=== PATIENT | female | born 1995 | race Caucasian/White ===

== ENCOUNTER 2020-12-17 19:27 | Emergency (ER) | payer OTHER ==
[2020-12-17] MEDS ORDERED: predniSONE 10 MG Tab PO ONE (22:56)
[2020-12-17] MEDS ORDERED: diphenhydrAMINE 50 MG/ML SDV IM ONE (22:56)
--- NOTE | 2020-12-17 23:02 | EDM.PDOC ---
ED HPI GENERAL MEDICAL PROBLEM - General Chief Complaint: Allergic Reaction Stated Complaint: ALLERGIC REACTION Time Seen by Provider: 12/17/20 22:51 - History of Present Illness INITIAL COMMENTS - FREE TEXT/NARRATIVE: HISTORY AND PHYSICAL: History of present illness: Is a 25-year-old female who presents ER today secondary to hives and rash throughout her body times approximately 3 PM. Patient reports that she took Benadryl with some relief however the rash is persistent and getting worse. Patient reports she is had similar rash in the past of unclear etiology. Patient has any recent fevers, shakes, chills, nausea, vomiting, diarrhea, dysuria, frequency, urgency. Patient has any history of hypertension, diabetes, liver, lung, kidney problems. Patient denies any shortness of breath, wheezing, fullness sensation in her throat. Patient denies any change in her voice. Review of systems: As per history of present illness and below otherwise all systems reviewed and negative. Past medical history: As per history of present illness and as reviewed below otherwise noncontributory. Surgical history: As per history of present illness and as reviewed below otherwise noncontributory. Social history: No reported history of drug abuse. Family history: As per history of present illness and as reviewed below otherwise noncontributory. Physical exam: This patient was seen and evaluated during the 2019 SARS-CoV-2 novel coronavirus pandemic period. Community viral transmission is ongoing at time of this encounter and the emergency department is operating under pandemic response procedures. Constitutional: Patient is oriented to person, place, and time. Appears well- developed and well-nourished. No distress. HEENT: Moist mucous membranes Head: Normocephalic and atraumatic Eyes: Right eye exhibits no discharge. Left eye exhibits no discharge. No scleral icterus Neck: Normal range of motion. No tracheal deviation present. Cardiovascular: Normal rate and regular rhythm. Pulmonary: Effort normal, no respiratory distress. Abdominal: No distention Musculoskeletal: Normal range of motion Neurologic: Alert and oriented to person, place and time. Skin: [place]enn[place], warm and dry. Rash consistent with hives noted throughout her arms torso and lower extremities. Psychiatric: Normal mood and affect. Behavior is normal. Judgment and thought content normal. Nursing note and vital signs have been reviewed Diagnostics: [] Therapeutics: [] Assessment and plan: 24-year-old female presents ER today with likely allergic reaction. Patient will get started on prednisone and Benadryl. Patient be given 50 IM Benadryl in the ED as well as 40 mg p.o. Prednisone. Patient will be discharged home with prescription sent [facility] secondary to weekend and all pharmacies closed. Reassessment at the time of disposition demonstrates that the patient is in no acute distress. The patient has remained stable throughout the entire ED visit and is without objective evidence for acute process requiring urgent intervention or hospitalization. The patient is stable for discharge, counseling is provided as documented above, discussed symptomatic treatment and specific conditions for return. I have spoken with the patient/caregiver and discussed todays findings, in addition to providing specific details for the plan of care. Questions are answered and there is agreement with the plan. Definitive disposition and diagnosis as appropriate pending reevaluation and review of above. Past Medical History HEENT History: Reports: None Cardiovascular History: Reports: None Respiratory History: Reports: None Gastrointestinal History: Reports: None Genitourinary History: Reports: None FACILITIES PROJECT MANAGER History: Reports: None Musculoskeletal History: Reports: None Neurological History: Reports: None Psychiatric History: Reports: Anxiety, Depression, Other (See Below) Other Psychiatric History: borderline personality disorder Endocrine/Metabolic History: Reports: None Hematologic History: Reports: None Immunologic History: Reports: None Oncologic (Cancer) History: Reports: None Dermatologic History: Reports: None - Infectious Disease History Infectious Disease History: Reports: Chicken Pox - Past Surgical History Head Surgeries/Procedures: Reports: None Social & Family History - Family History Family Medical History: No Pertinent Family History - Tobacco Use Tobacco Use Status *Q: Current Every Day Tobacco User Years of Tobacco use: 5 Packs/Tins Daily: 1 - Caffeine Use Caffeine Use: Reports: Soda - Recreational Drug Use Recreational Drug Use: No ED ROS ALLERGIC REACTION - Review of Systems Review Of Systems: See Below ED EXAM GENERAL NO PERIP PULSE - Physical Exam Exam: See Below Course - Vital Signs Last Recorded V/S: Last Vital Signs Temp 98.3 F 12/17/20 22:10 Pulse 97 12/17/20 22:04 Resp 16 12/17/20 22:04 BP 124/89 12/17/20 22:04 Pulse Ox 96 12/17/20 22:04 - Orders/Labs/Meds Meds: Medications Discontinued Medications Generic Name Dose Route Start Last Admin Trade Name Freq PRN Reason Stop Dose Admin Diphenhydramine HCl 50 mg 12/17/20 22:56 Diphenhydramine 50 Mg/Ml Sdv IM 12/17/20 22:57 ONETIME ONE Prednisone 40 mg 12/17/20 22:56 Prednisone 10 Mg Tab PO 12/17/20 22:57 ONETIME ONE Departure - Departure Time of Disposition: 23:00 Disposition: Home, Self-Care 01 Condition: Good Clinical Impression: Contact dermatitis, Hives - Discharge Information Instructions: Hives, Contact Dermatitis Referrals: PCP,None [Primary Care Provider] - Additional Instructions: Your seen and evaluated in ER today secondary to a rash consistent with hives. This is secondary to an allergic reaction to an allergen that you are coming into contact with. You will be given a prescription for prednisone to take daily for 5 days. You will also be instructed to take Benadryl 50 mg every 6 hours for the next 2 to 3 days. Please make appointment see your family doctor to get referred to an learning engineer so they can help you identify the cause of your allergic reactions. Please return to the ER if you start developing any shortness of breath or discomfort in your throat or wheezing. Your medications have been sent to our [facility] system The following information is given to patients seen in the emergency department who are being discharged to home. This information is to outline your options for follow-up care. We provide all patients seen in our emergency department with a follow-up referral. The need for follow-up, as well as the timing and circumstances, are variable depending upon the specifics of your emergency department visit. If you don't have a primary care physician on staff, we will provide you with a referral. We always advise you to contact your personal physician following an emergency department visit to inform them of the circumstance of the visit and for follow-up with them and/or the need for any referrals to a consulting specialist. The emergency department will also refer you to a specialist when appropriate. This referral assures that you have the opportunity for follow-up care with a specialist. All of these measure are taken in an effort to provide you with optimal care, which includes your follow-up. Under all circumstances we always encourage you to contact your private physician who remains a resource for coordinating your care. When calling for follow-up care, please make the office aware that this follow-up is from your recent emergency room visit. If for any reason you are refused follow-up, please contact the [facility] Emergency Department at and asked to speak to the emergency department charge nurse. [facility] - [facility] [address] [place] [id number] [address] Sepsis Event Note (ED) - Evaluation Sepsis Screening Result: No Definite Risk - Focused Exam Vital Signs: Vital Signs Temp Temp Pulse Resp BP Pulse Ox 12/17/20 22:10 98.3 F 12/17/20 22:04 98.2 F 97 16 124/89 96 12/17/20 21:11 98.3 F 96 18 121/73
== END 2020-12-17 23:14 | disposition home or self-care (01) ==
LOC: MW.ED 19:27
DX: L25.9 Unspecified contact dermatitis, unspecified cause (principal); Z72.0 Tobacco use
CPT/HCPCS: 96372; 99282; A9270; J1200

== ENCOUNTER 2021-01-27 18:24 | Emergency (ER) | payer OTHER ==
--- NOTE | 2021-01-27 18:54 | EDM.PDOC ---
ED HPI GENERAL MEDICAL PROBLEM - General Chief Complaint: SPA CONCIERGE Problem Stated Complaint: 6 OR 7 WEEKS , BLEEDING Time Seen by Provider: 01/27/21 18:54 Source of Information: Reports: Patient History Limitations: Reports: No Limitations - History of Present Illness INITIAL COMMENTS - FREE TEXT/NARRATIVE: HISTORY AND PHYSICAL: History of present illness: Patient is a 25 year old female who presents to the ED with complaints of vaginal bleeding in . LMP end of November, she believes she is 6-7 weeks guestation. Dark blood noted last night, continued into today. She did have sexual intercourse last evening. Notes mild low abdominal cramping sensation. , P:1. Here from [place] visiting, will be here for 1 more week then returning home. Patient denies any fever, chills, headache, change in vision, syncope or near syncope. Denies any chest pain, back pain, shortness of breath or cough. Denies any nausea, vomiting, diarrhea, constipation or dysuria. Has not noted any blood in urine or stool. Patient has been eating and drinking appropriately. No recent travel or sick contacts. Review of systems: As per history of present illness and below otherwise all systems reviewed and negative. Past medical history: As per history of present illness and as reviewed below otherwise noncontributory. Surgical history: As per history of present illness and as reviewed below otherwise noncontributory. Social history: See social history for further information Family history: As per history of present illness and as reviewed below otherwise noncontribut ory. Physical exam: General: Well developed and well nourished. Alert and orientated x 3. Nontoxic in appearance and in no acute distress. Vital signs are stable and have been reviewed by me. Nursing notes were reviewed. HEENT: Atraumatic, normocephalic, pupils equal and reactive bilaterally, negative for conjunctival pallor or scleral icterus, mucous membranes moist, TMs normal bilaterally, throat clear, neck supple, nontender, trachea midline. No drooling or trismus noted. No meningeal signs. No hot potato voice noted. Lungs: Clear to auscultation bilaterally. No wheezes, rales, or rhonchi. Chest nontender. Normal work of breathing, no accessory muscles used. Heart: S1S2, regular rate and rhythm without overt murmur, gallops, or rubs. No JVD. No peripheral edema Abdomen: Soft, nondistended, nontender. Normoactive bowel sounds. Negative for masses or costovertebral tenderness. Genitourinary/Rectal: This was done with consent and food safety specialist at bedside. She does have blood in the vaginal vault, cervical os is closed. No cervical motion tenderness. Tolerated fair. Normal appearing external genitalia. Skin: Intact, warm, dry. No lesions or rashes noted. Hematologic: No petechiae or purpra. Mucosa appropriate color and normal nail bed color and refill. Extremities: Atraumatic, moves all extremities per self without difficulty or deficits, negative for cords or calf pain. Neurovascular unremarkable. Neuro: Awake, alert, oriented. Cranial nerves II through XII unremarkable. Cerebellum unremarkable. Motor and sensory unremarkable throughout. Exam nonfocal. Psychiatric: Mood and affect are appropriate. Normal thought process. Answering questions appropriately. Please note that the patient was seen and evaluated during the 2019 SARS-CoV-2 novel coronavirus pandemic period. Community viral transmission is ongoing at time of this encounter and the emergency department is operating under pandemic response procedures. Medical Decision Making: Patient is a 25 year old female who is about 6-7 weeks gestation with vaginal bleeding and cramping. Pelvic exam reveals blood in the vaginal vault. Will obtain an ultrasound. CBC, CMP and UA are within normal limits. Quant HCG is 183. O positive. Ultrasound shows no sign of an intrauterine gestational sac. Differential diagnosis includes completed spontaneous , early intrauterine gestation, or ectopic gestation. Recommend correlation with serial quantitative beta HCG measurements. Follow-up ultrasound may be of benefit. Mild thickening of the endometrial lining at 13 millimeters. I have talked with the patient about today's findings, in addition to providing specific details for plan of care. Reassessment at the time of disposition demonstrates that the patient is in no acute distress. Will order outpatient HCG quant; she plans to return to [place] in a few days. The patient is stable for discharge, counseling was provided and we discussed in great detail signs and symptoms that would prompt them to return to the Emergency Department. Medication, follow up and supportive care measures were reviewed and discussed. Voices understanding and is agreeable to plan of care. Denies any further questions or concerns at this time. Diagnostics: CBC, CMP, RH, UA, Quant HCG, OB u/s Therapeutics: None Prescription: Outpatient Quant HCG Impression: Threatened Miscarriage, First Trimester Plan: 1. Today you were evaluated on an emergent basis. Your lab is within normal limits. You will need a repeat quantitative HCG ( hormone) redrawn on 01/29/2021 - today it was 183. As we discussed, this number should increase during your first trimester. Typically OBGYNs want a repeat ultrasound in 2 weeks, please schedule this with your OBGYN. 2. Pelvic rest until cleared by your OBGYN (no tampons, sex, etc...) 3. Please start and/or continue to take your vitamin with folic acid once daily. Tylenol as needed for pain management. 4. Follow up with your SPA CONCIERGE in the few days. 5. If your symptoms should worsen, new symptoms develop - Please return to the ED as needed and as discussed. Definitive disposition and diagnosis as appropriate pending reevaluation and review of above. lower abd Pain Score (Numeric/FACES): 4 - Related Data Allergies Allergy/AdvReac Type Severity Reaction Status Date / Time No Known Allergies Allergy Verified 01/27/21 18:28 Home Meds: Home Meds DULoxetine [Cymbalta] 30 mg PO DAILY 12/17/20 [History] busPIRone HCl [Buspirone HCl] 10 mg PO DAILY 12/17/20 [History] cloNIDine [Catapres] 0.1 mg PO BEDTIME 12/17/20 [History] traZODone HCl [Trazodone HCl] 25 mg PO DAILY 12/17/20 [History] Past Medical History HEENT History: Reports: None Cardiovascular History: Reports: None Respiratory History: Reports: None Gastrointestinal History: Reports: None Genitourinary History: Reports: None SPA CONCIERGE History: Reports: Musculoskeletal History: Reports: None Neurological History: Reports: None Psychiatric History: Reports: Anxiety, Depression, Other (See Below) Other Psychiatric History: borderline personality disorder Endocrine/Metabolic History: Reports: None Hematologic History: Reports: None Immunologic History: Reports: None Oncologic (Cancer) History: Reports: None Dermatologic History: Reports: None - Infectious Disease History Infectious Disease History: Reports: Chicken Pox - Past Surgical History Head Surgeries/Procedures: Reports: None Social & Family History - Family History Family Medical History: No Pertinent Family History - Tobacco Use Tobacco Use Status *Q: Former Tobacco User Used Tobacco, but Quit: Yes Month/Year Tobacco Last Used: 01/21/21 - Caffeine Use Caffeine Use: Reports: Soda - Recreational Drug Use Recreational Drug Use: No ED ROS GENERAL - Review of Systems Review Of Systems: Comprehensive ROS is negative, except as noted in HPI. ED EXAM - Physical Exam Exam: See Below (See dictation) Course - Vital Signs Last Recorded V/S: Last Vital Signs Temp 98.3 F 01/27/21 18:29 Pulse 96 01/27/21 18:29 Resp 16 01/27/21 18:29 BP 122/78 01/27/21 18:29 Pulse Ox 95 01/27/21 18:29 - Orders/Labs/Meds Labs: Laboratory Tests 01/27/21 01/27/21 01/27/21 Range/Units 18:35 18:35 19:11 WBC 6.25 (4.0-11.0) K/uL RBC 3.87 L (4.30-5.90) M/uL Hgb 12.5 (12.0-16.0) g/dL Hct 36.4 (36.0-46.0) % MCV 94.1 (80.0-98.0) fL MCH 32.3 H (27.0-32.0) pg MCHC 34.3 (31.0-37.0) g/dL RDW Std Deviation 42.6 (28.0-62.0) fl RDW Coeff of Dominga 13 (11.0-15.0) % Plt Count 298 (150-400) K/uL MPV 9.60 (7.40-12.00) fL Neut % (Auto) 52.9 (48.0-80.0) % Lymph % (Auto) 33.0 (16.0-40.0) % [place] % (Auto) 10.4 (0.0-15.0) % Eos % (Auto) 2.9 (0.0-7.0) % Baso % (Auto) 0.8 (0.0-1.5) % Neut # (Auto) 3.3 (1.4-5.7) K/uL Lymph # (Auto) 2.1 (0.6-2.4) K/uL [place] # (Auto) 0.7 (0.0-0.8) K/uL Eos # (Auto) 0.2 (0.0-0.7) K/uL Baso # (Auto) 0.1 (0.0-0.1) K/uL Nucleated RBC % 0.0 /100WBC Nucleated RBCs # 0 K/uL Sodium (136-145) mmol/L Potassium (3.5-5.1) mmol/L Chloride (98-107) mmol/L Carbon Dioxide (21.0-32.0) mmol/L BUN (7.0-18.0) mg/dL Creatinine (0.6-1.0) mg/dL Est Cr Clr Drug Dosing mL/min Estimated GFR (MDRD) ml/min Glucose (74-106) mg/dL Calcium (8.5-10.1) mg/dL Total Bilirubin (0.2-1.0) mg/dL AST (15-37) IU/L ALT (14-63) IU/L Alkaline Phosphatase (46-116) U/L Total Protein (6.4-8.2) g/dL Albumin (3.4-5.0) g/dL Globulin (2.6-4.0) g/dL Albumin/Globulin Ratio (0.9-1.6) HCG, Quant mIU/mL Urine Color YELLOW Urine Appearance CLEAR Urine pH 7.0 (5.0-8.0) Ur Specific [place] 1.010 (1.001-1.035) Urine Protein NEGATIVE (NEGATIVE) mg/dL Urine Glucose (UA) NEGATIVE (NEGATIVE) mg/dL Urine Ketones NEGATIVE (NEGATIVE) mg/dL Urine Occult Blood SMALL H (NEGATIVE) Urine Nitrite NEGATIVE (NEGATIVE) Urine Bilirubin NEGATIVE (NEGATIVE) Urine Urobilinogen 0.2 (<2.0) EU/dL Ur Leukocyte Esterase NEGATIVE (NEGATIVE) Urine RBC 0-1 (0-2/HPF) Urine WBC 0-1 (0-5/HPF) Ur Epithelial Cells OCCASIONAL (NONE-FEW) Urine Bacteria RARE (NEGATIVE) Urine HCG, Qual POSITIVE (NEGATIVE) Blood Type 01/27/21 01/27/21 Range/Units 19:11 19:11 WBC (4.0-11.0) K/uL RBC (4.30-5.90) M/uL Hgb (12.0-16.0) g/dL Hct (36.0-46.0) % MCV (80.0-98.0) fL MCH (27.0-32.0) pg MCHC (31.0-37.0) g/dL RDW Std Deviation (28.0-62.0) fl RDW Coeff of Dominga (11.0-15.0) % Plt Count (150-400) K/uL MPV (7.40-12.00) fL Neut % (Auto) (48.0-80.0) % Lymph % (Auto) (16.0-40.0) % [place] % (Auto) (0.0-15.0) % Eos % (Auto) (0.0-7.0) % Baso % (Auto) (0.0-1.5) % Neut # (Auto) (1.4-5.7) K/uL Lymph # (Auto) (0.6-2.4) K/uL [place] # (Auto) (0.0-0.8) K/uL Eos # (Auto) (0.0-0.7) K/uL Baso # (Auto) (0.0-0.1) K/uL Nucleated RBC % /100WBC Nucleated RBCs # K/uL Sodium 139 (136-145) mmol/L Potassium 3.9 (3.5-5.1) mmol/L Chloride 103 (98-107) mmol/L Carbon Dioxide 26.7 (21.0-32.0) mmol/L BUN 10 (7.0-18.0) mg/dL Creatinine 0.7 (0.6-1.0) mg/dL Est Cr Clr Drug Dosing 129.78 mL/min Estimated GFR (MDRD) > 60.0 ml/min Glucose 109 H (74-106) mg/dL Calcium 8.5 (8.5-10.1) mg/dL Total Bilirubin 0.3 (0.2-1.0) mg/dL AST 24 (15-37) IU/L ALT 48 (14-63) IU/L Alkaline Phosphatase 62 (46-116) U/L Total Protein 6.4 (6.4-8.2) g/dL Albumin 3.3 L (3.4-5.0) g/dL Globulin 3.1 (2.6-4.0) g/dL Albumin/Globulin Ratio 1.1 (0.9-1.6) HCG, Quant 183.0 mIU/mL Urine Color Urine Appearance Urine pH (5.0-8.0) Ur Specific [place] (1.001-1.035) Urine Protein (NEGATIVE) mg/dL Urine Glucose (UA) (NEGATIVE) mg/dL Urine Ketones (NEGATIVE) mg/dL Urine Occult Blood (NEGATIVE) Urine Nitrite (NEGATIVE) Urine Bilirubin (NEGATIVE) Urine Urobilinogen (<2.0) EU/dL Ur Leukocyte Esterase (NEGATIVE) Urine RBC (0-2/HPF) Urine WBC (0-5/HPF) Ur Epithelial Cells (NONE-FEW) Urine Bacteria (NEGATIVE) Urine HCG, Qual (NEGATIVE) Blood Type O POSITIVE Departure - Departure Time of Disposition: 20:40 Disposition: Home, Self-Care 01 Clinical Impression: Threatened miscarriage in early - Discharge Information Instructions: Threatened Miscarriage, [id number] Referrals: PCP,Not In Area [Primary Care Provider] - Forms: ED Department Discharge Additional Instructions: The following information is given to patients seen in the emergency department who are being discharged to home. This information is to outline your options for follow-up care. We provide all patients seen in our emergency department with a follow-up referral. The need for follow-up, as well as the timing and circumstances, are variable depending upon the specifics of your emergency department visit. If you don't have a primary care physician on staff, we will provide you with a referral. We always advise you to contact your personal physician following an emergency department visit to inform them of the circumstance of the visit and for follow-up with them and/or the need for any referrals to a consulting specialist. The emergency department will also refer you to a specialist when appropriate. This referral assures that you have the opportunity for follow-up care with a specialist. All of these measure are taken in an effort to provide you with optimal care, which includes your follow-up. Under all circumstances we always encourage you to contact your private physician who remains a resource for coordinating your care. When calling for follow-up care, please make the office aware that this follow-up is from your recent emergency room visit. If for any reason you are refused follow-up, please contact the [facility] Emergency Department at and asked to speak to the emergency department charge nurse. [facility] Primary [facility] [address] [place] [address] [facility] [address] [place] [address] Thank you for choosing the [facility] emergency department in [place] for your medical needs today. It was a pleasure caring for you. Today you were seen in the emergency department for vaginal bleeding in . 1. Today you were evaluated on an emergent basis. Your lab is within normal limits. You will need a repeat quantitative HCG ( hormone) redrawn on 01/29/2021 - today it was 183. As we discussed, this number should increase during your first trimester. Typically OBGYNs want a repeat ultrasound in 2 weeks, please schedule this with your OBGYN. 2. Pelvic rest until cleared by your OBGYN (no tampons, sex, etc...) 3. Please start and/or continue to take your vitamin with folic acid once daily. Tylenol as needed for pain management. 4. Follow up with your SPA CONCIERGE in the few days. 5. If your symptoms should worsen, new symptoms develop - Please return to the ED as needed and as discussed. Sepsis Event Note (ED) - Evaluation Sepsis Screening Result: No Definite Risk - Focused Exam Vital Signs: Vital Signs Temp Pulse Resp BP Pulse Ox 01/27/21 18:29 98.3 F 96 16 122/78 95
[2021-01-27 19:48] LABS: BLOOD UREA NITROGEN,BUN 10 mg/dL (7.0-18.0); CARBON DIOXIDE,CO2 26.7 mmol/L (21.0-32.0); CHLORIDE,CL 103 mmol/L (98-107); GLUCOSE RANDOM 109 mg/dL (74-106); POTASSIUM,K 3.9 mmol/L (3.5-5.1); SODIUM,NA 139 mmol/L (136-145)
--- NOTE | 2021-01-27 20:36 | US ---
INDICATION: Bleeding and cramping. Beta hCG pending. COMPARISON: None available. FINDINGS: Transvaginal ultrasound examination of the female pelvis was performed. There is no sign of an intrauterine gestational sac. The findings are that of a completed spontaneous versus early intrauterine gestation versus ectopic gestation. The uterus is retroflexed with no evidence of mass. The endometrial lining is mildly increased in thickness at 13 mm. The ovaries are normal in appearance and size, the right measuring 2.5 x 2.0 x 1.4 cm and the left measuring 2.1 x 1.5 x 1.2 cm. There is normal color and pulse doppler flow in both ovaries. There is no sign of free fluid in the pelvis. IMPRESSION: No sign of an intrauterine gestational sac. Differential diagnosis includes completed spontaneous , early intrauterine gestation, or ectopic gestation. Recommend correlation with serial quantitative beta HCG measurements. Follow-up ultrasound may be of benefit. Mild thickening of the endometrial lining at 13 millimeters. Dictated by Benjamin Duke MD @ 01/27/2021 8:35:24 PM (Electronically Signed)
== END 2021-01-27 20:48 | disposition home or self-care (01) ==
LOC: MW.ED 18:24
DX: O20.0 Threatened abortion (principal); Z3A.01 Less than 8 weeks gestation of pregnancy; Z87.891 Personal history of nicotine dependence
CPT/HCPCS: 36415; 76801; 76801-26; 80053; 81001; 81025; 84702; 85025; 86900; 86901; 99284-25